=== PATIENT | male | born 1965 | race Caucasian/White ===

== ENCOUNTER → 2016-08-29 | Outpatient (CLI) | payer BC ==
[~2016-08-29] VITALS: Ht 177.8 cm; Wt 81.7 kg
[~2016-08-29] MED LIST: CARAFATE1 GM PO; MULTI-DAY VITA1 EACH PO; PROTONIX40 MG PO; SYMBICORT60 INHALAT IH
== END | disposition home or self-care (01) ==
LOC: AMB 12:55
DX: Z12.11 Encounter for screening for malignant neoplasm of colon (principal); C16.3 Malignant neoplasm of pyloric antrum; C17.0 Malignant neoplasm of duodenum; B96.81 Helicobacter pylori [H. pylori] as the cause of diseases classified elsewhere; K44.9 Diaphragmatic hernia without obstruction or gangrene; K29.80 Duodenitis without bleeding; F17.200 Nicotine dependence, unspecified, uncomplicated
CPT/HCPCS: 88108; 88305; 88342 TC; J2250; J3010

== ENCOUNTER → 2016-09-11 | Outpatient (CLI) | payer BC ==
[~2016-09-11] VITALS: Ht 177.8 cm; Wt 79.5 kg
[~2016-09-11] MED LIST changes: +MYCOSTATIN15 GM PO
[2016-09-11 14:05] VITALS: BP 113/75
== END | disposition home or self-care (01) ==
LOC: AMB 10:44
DX: C16.2 Malignant neoplasm of body of stomach (principal); F17.200 Nicotine dependence, unspecified, uncomplicated; K21.9 Gastro-esophageal reflux disease without esophagitis
CPT/HCPCS: C1726; J2250; J3010

== ENCOUNTER 2016-09-24 06:49 | Day surgery (SDC) | payer BC ==
[~2016-09-24] VITALS: Ht 177.8 cm; Wt 78.0 kg
[2016-09-25] MEDS ORDERED: COMPAZINE10 MG PO (08:35)
[2016-09-25] MEDS ORDERED: ZOFRAN8 MG PO (08:36)
== END 2016-09-24 09:05 | disposition home or self-care (01) ==
LOC: CATH 06:49
DX: I87.8 Other specified disorders of veins (principal); C16.9 Malignant neoplasm of stomach, unspecified; F17.200 Nicotine dependence, unspecified, uncomplicated
CPT/HCPCS: C1752; C1894; J0690; J1644; J2250; J3010; S0020

== ENCOUNTER → 2017-04-23 | Outpatient (CLI) | payer BC ==
[~2017-04-23] VITALS: Ht 180.3 cm; Wt 81.6 kg
[~2017-04-23] MED LIST changes: +AGONEAZE 2.5%-1 EACH TP; +ATIVAN0.5 MG PO; +CERAVE453 GM TP; +CHERATUSSIN AC473 ML PO; +CIPRO500 MG PO; +COMBIVENT RESPIM4 GM IH; +COMPAZINE10 MG PO; +MEDROL32 MG PO; +ROXICODONE5 MG PO; +XELODA500 MG PO; +ZOFRAN8 MG PO
== END | disposition home or self-care (01) ==
LOC: AMB 09:41
DX: K83.1 Obstruction of bile duct (principal); C78.89 Secondary malignant neoplasm of other digestive organs; Z85.028 Personal history of other malignant neoplasm of stomach
CPT/HCPCS: 74328; 87081; 88108; 88305; 88341 TC; 88342 TC; C1757; C1769; C1876; C2625; J0330; J1100; J2250; J2405; J3010

== ENCOUNTER 2017-04-26 14:23 | Emergency (ER) | payer BC ==
[~2017-04-26] VITALS: Ht 180.3 cm; Wt 79.7 kg
[~2017-04-26 14:23] MED LIST changes: -AGONEAZE 2.5%-1 EACH TP; -CERAVE453 GM TP; -CHERATUSSIN AC473 ML PO; -COMBIVENT RESPIM4 GM IH; -MEDROL32 MG PO; -ROXICODONE5 MG PO; -XELODA500 MG PO
[2017-04-26 14:44] LABS: HEMATOCRIT 35.1 % (38.0-50.0); HEMOGLOBIN 12.8 G/DL (12.5-16.6); MCH 33.9 PG (29.0-34.0); MCHC 36.5 G/DL (30.0-36.0); RBC DIS.WIDTH-CV 18.7 % (11.8-14.6); RBC DIS.WIDTH-SD 63.1 % (39-53); RED BLOOD COUNT 3.78 M/uL (4.00-5.50); WHITE BLOOD COUNT 7.7 K/uL (4.1-10.2)
[2017-04-26 14:46] LABS: MCV 92.9 FL (86-99); PLATELET COUNT 358 K/uL (156-360)
[2017-04-26 14:55] LABS: ALBUMIN 3.5 g/dL (3.2-4.8); CHLORIDE 97 mEq/L (99-109); SODIUM 133 mEq/L (136-147)
[2017-04-26 14:57] LABS: GLUCOSE 104 mg/dL (70-99); TOTAL PROTEIN 7.3 g/dL (6.4-8.3)
[2017-04-26 14:59] LABS: TOTAL BILIRUBIN 11.5 mg/dL (0.0-1.0)
[2017-04-26 15:01] LABS: ALKALINE PHOSPHATASE 338 IU/L (3-129); CREATININE 0.9 mg/dL (0.6-1.3); GFR ESTIMATE (CALCULATED) > 59 mL/min/ (58.99-99999)
[2017-04-26 15:02] LABS: UREA NITROGEN (BUN) 10 mg/dL (9-23)
[2017-04-26 15:03] LABS: AST (GOT) 73 IU/L (2-34)
[2017-04-26 15:04] LABS: ALT (GPT) 64 IU/L (3-49)
[2017-04-26 16:30] LABS: APPEARANCE SL.HAZY ((CLEAR)); BILIRUBIN MODERATE; BLOOD NEGATIVE; COLOR AMBER ((YELLOW)); GLUCOSE (STRIP) NEGATIVE; KETONES NEGATIVE; LEUKOCYTES NEGATIVE; NITRITE NEGATIVE; PROTEIN (STRIP) 30; SPECIFIC GRAVITY 1.027 (1.000-1.030)
[2017-04-26 16:34] LABS: BACTERIA RARE /HPF; EPITHELIAL CELLS NONE SEEN /HPF; MUCUS 1+ /LPF; RED BLOOD CELLS 0-5 /HPF (0-5); UCUL ADDED? NO; WHITE BLOOD CELLS 0-5 /HPF (0-5)
[2017-04-26 16:45] LABS: ICTOTEST POSITIVE
[2017-04-26 18:00] LABS: LIPASE 281 U/L (1.0-51.0)
[2017-04-26] MEDS ORDERED: ROXICODONE5 MG PO (21:27)
[2017-04-26 21:42] VITALS: BP 111/70
[2017-05-01] MEDS ORDERED: CARAFATE1 GM PO (08:48)
[2017-05-01] MEDS ORDERED: CERAVE453 GM TP (08:48)
[2017-05-01] MEDS ORDERED: XELODA500 MG PO (08:48)
[2017-05-01] MEDS ORDERED: CHERATUSSIN AC473 ML PO (08:49)
[2017-05-01] MEDS ORDERED: COMBIVENT RESPIM4 GM IH (08:49)
[2017-05-01] MEDS ORDERED: AGONEAZE 2.5%-1 EACH TP (08:50)
[2017-05-01] MEDS ORDERED: MEDROL32 MG PO (08:52)
[2017-05-01] MEDS ORDERED: SYMBICORT60 INHALAT IH (08:53)
== END 2017-04-26 22:17 | disposition left against medical advice (07) ==
LOC: EME 14:23
DX: K83.1 Obstruction of bile duct (principal); C16.9 Malignant neoplasm of stomach, unspecified; R74.0 Nonspecific elevation of levels of transaminase and lactic acid dehydrogenase [LDH]; Z92.21 Personal history of antineoplastic chemotherapy; F17.200 Nicotine dependence, unspecified, uncomplicated
CPT/HCPCS: 74177; 80053; 81003; 83690; 85027; 99281; 99285; J2270; J7030

== ENCOUNTER → 2017-05-02 | Outpatient (CLI) | payer BC ==
[~2017-05-02] MED LIST changes: +AGONEAZE 2.5%-1 EACH TP; +CERAVE453 GM TP; +CHERATUSSIN AC473 ML PO; +COMBIVENT RESPIM4 GM IH; +MEDROL32 MG PO; +ROXICODONE5 MG PO; +XELODA500 MG PO
[2017-05-02 09:04] LABS: INTER. NORMALIZED RATIO 1.6
[2017-05-02 09:07] LABS: PTT 28.9 SEC (25-37)
== END | disposition home or self-care (01) ==
LOC: OPR 08:00
PROVIDERS: Internal Medicine Hematology & Oncology
PROC: 0F9930Z Drainage of Common Bile Duct with Drainage Device, Percutaneous Approach (ICD-10-PCS; principal; 2017-05-02)
DX: K83.1 Obstruction of bile duct (principal); R17 Unspecified jaundice; R00.0 Tachycardia, unspecified; R50.9 Fever, unspecified
CPT/HCPCS: 47534; 85610; 85730; C1729; C1766; J0696; J2250; J2310; J3010

== ENCOUNTER 2017-05-07 23:53 | Emergency (ER) | payer BC ==
[~2017-05-07] VITALS: Ht 180.3 cm; Wt 77.1 kg
[2017-05-08] MEDS ORDERED: KADIAN20 MG PO (03:25)
[2017-05-08 03:45] VITALS: BP 121/74
== END 2017-05-08 04:04 | disposition home or self-care (01) ==
LOC: EME 23:53
DX: K85.90 Acute pancreatitis without necrosis or infection, unspecified (principal); K72.90 Hepatic failure, unspecified without coma; E86.0 Dehydration; C25.9 Malignant neoplasm of pancreas, unspecified; F17.200 Nicotine dependence, unspecified, uncomplicated; Z96.89 Presence of other specified functional implants; Z85.028 Personal history of other malignant neoplasm of stomach
CPT/HCPCS: 99281; 99284; J2270

== ENCOUNTER 2017-05-10 07:52 | Emergency (ER) | payer BC ==
[~2017-05-10] VITALS: Ht 177.8 cm; Wt 75.4 kg
[~2017-05-10 07:52] MED LIST changes: +KADIAN20 MG PO
[2017-05-10 12:09] VITALS: BP 119/78
== END 2017-05-10 12:09 | disposition home or self-care (01) ==
LOC: EME 07:52
DX: T85.590A Other mechanical complication of bile duct prosthesis, initial encounter (principal); C16.9 Malignant neoplasm of stomach, unspecified; C78.89 Secondary malignant neoplasm of other digestive organs; F17.200 Nicotine dependence, unspecified, uncomplicated
CPT/HCPCS: 99281; 99284

== ENCOUNTER → 2017-05-12 | Outpatient (CLI) | payer BC | END | disposition home or self-care (01) | LOC: RAD 11:18 | PROC: 0F2BX0Z Change Drainage Device in Hepatobiliary Duct, External Approach (ICD-10-PCS; principal; 2017-05-12) | DX: T85.618A Breakdown (mechanical) of other specified internal prosthetic devices, implants and grafts, initial encounter (principal) | CPT/HCPCS: 47536; C1729 ==

== ENCOUNTER → 2017-05-15 | Outpatient (CLI) | payer BC | END | disposition home or self-care (01) | LOC: RAD 10:58 | PROC: 0FJB3ZZ Inspection of Hepatobiliary Duct, Percutaneous Approach (ICD-10-PCS; principal; 2017-05-15) | DX: T85.618A Breakdown (mechanical) of other specified internal prosthetic devices, implants and grafts, initial encounter (principal); Z53.09 Procedure and treatment not carried out because of other contraindication | CPT/HCPCS: 47532 ==

== ENCOUNTER → 2017-05-16 | Outpatient (CLI) | payer BC | END | disposition home or self-care (01) | LOC: EDSTATUS 13:30 → OPR 13:30 | PROC: 0F2BX0Z Change Drainage Device in Hepatobiliary Duct, External Approach (ICD-10-PCS; principal; 2017-05-16) | DX: T85.638A Leakage of other specified internal prosthetic devices, implants and grafts, initial encounter (principal) | CPT/HCPCS: 47536; 75984; C1729; J0696; J3010 ==

== ENCOUNTER → 2017-05-30 | Outpatient (CLI) | payer BC ==
[~2017-05-30] MED LIST changes: +DURAGESIC12 MCG TD; +FUROSEMIDE20 MG PO; +OXYCODONE HCL10 MG PO
== END | disposition home or self-care (01) ==
LOC: OPR 11:51 → EDSTATUS 12:00 → OPR 12:00
PROC: 0F2BX0Z Change Drainage Device in Hepatobiliary Duct, External Approach (ICD-10-PCS; principal; 2017-05-30)
DX: T85.638A Leakage of other specified internal prosthetic devices, implants and grafts, initial encounter (principal)
CPT/HCPCS: 47536; C1729; C1769; J3010

== ENCOUNTER → 2017-06-03 | Outpatient (CLI) | payer BC ==
[~2017-06-03] MED LIST changes: +DAILY VALUE1 EACH PO; -MULTI-DAY VITA1 EACH PO; +ZOFRAN ODT8 MG PO
[2017-06-03 14:11] LABS: INTER. NORMALIZED RATIO 3.3
[2017-06-03 14:12] LABS: PTT 44.1 SEC (25-37)
== END | disposition home or self-care (01) ==
LOC: OPR 13:24 → EDSTATUS 14:00 → OPR 14:00
PROVIDERS: Internal Medicine Hematology & Oncology
PROC: 0F9 Hepatobiliary System and Pancreas, Drainage (ICD-10-PCS; principal; 2017-06-03)
DX: T85.628A Displacement of other specified internal prosthetic devices, implants and grafts, initial encounter (principal); C16.9 Malignant neoplasm of stomach, unspecified
CPT/HCPCS: 47533; 85610; 85730; J2405; J3010

== ENCOUNTER 2017-06-04 21:20 | Observation (INO) | payer BC ==
[~2017-06-04] VITALS: Ht 180.3 cm; Wt 68.1 kg
[~2017-06-04 21:20] MED LIST changes: -ZOFRAN ODT8 MG PO
[2017-06-04] MEDS ORDERED: ZOFRAN ODT8 MG PO (22:14)
[2017-06-05 06:16] VITALS: BP 113/77
[2017-06-05 06:50] VITALS: BP 120/73
[2017-06-05 09:42] VITALS: BP 124/75
== END 2017-06-05 14:00 | disposition home or self-care (01) ==
LOC: EME 21:20 → EDOF 06-05 00:40 → ENRESERV 06-05 00:41 → 5EAST 06-05 01:16
DX: G89.3 Neoplasm related pain (acute) (chronic) (principal); R10.9 Unspecified abdominal pain; C16.9 Malignant neoplasm of stomach, unspecified; C25.9 Malignant neoplasm of pancreas, unspecified; C78.7 Secondary malignant neoplasm of liver and intrahepatic bile duct; Z92.21 Personal history of antineoplastic chemotherapy; K83.1 Obstruction of bile duct; Z66 Do not resuscitate; K72.90 Hepatic failure, unspecified without coma; F17.200 Nicotine dependence, unspecified, uncomplicated; Z85.828 Personal history of other malignant neoplasm of skin
CPT/HCPCS: 94640; 94640 76; 99202; 99281; 99285; G0378; J1200; J2270; J2405; J2765; J7030; J7040